=== PATIENT | female | born 1990 | race Caucasian/White ===

== ENCOUNTER 2018-05-20 12:45 | Observation (INO) | payer OTHER ==
[2018-05-20 14:10] LABS: ABS Basophils 0 10^3/ul (0-0.2); ABS Eosinophils 0 10^3/ul (0-0.6); ABS Monocytes 0.5 10^3/ul (0-0.8); ABS Neutrophils 5.9 10^3/ul (1.5-7.7); ABS Nucleated RBC 0 10^3/ul; Eosinophil % 0.3 %; Hematocrit 37 % (35-47); Hemoglobin 12.8 g/dl (12.0-16.0); Lymphocyte % 23.9 %; Mean Corpuscular HGB Conc 35 g/dl (31-36); Mean Corpuscular Hemoglobin 30 pg (27-31); Mean Corpuscular Volume 87 fL (80-97); Mean Platelet Volume 8.4 fL (7.4-10.4); Nucleated Red Blood Cells % 0.1; Platelet Count 250 10^3/ul (150-450); Red Blood Count 4.27 10^6/ul (4.00-5.40); Red Cell Distribution Width 12 % (10.5-15); White Blood Count 8.5 10^3/ul (3.5-10.8)
[2018-05-20 14:20] LABS: EGFR Non-African American 130.7 (>60)
[2018-05-20] MEDS ORDERED: Omeprazole CAP* 20 MG PO SCH (18:00)
--- NOTE | 2018-05-20 18:55 | CONS ---
CONSULTATION REPORT: DATE OF CONSULT: 05/20/18 PATIENT OF: Dr. Lane, Dr. Elisa Millan, Dr. Menchaca, and Dr. Hennessy. HISTORY OF PRESENT ILLNESS: This is a 27-year-old woman, who is 32 weeks . I received a call last evening from Dr. Menchaca, the vascular surgeon, about Miri developing a cold, possibly a weak foot. He did not think it was vascular, although he was obtaining a vascular ultrasound of that left leg and wanted to me to see promptly and I had discussed with him that I would be glad to, although I would be leaving town shortly after I saw her, but I would make sure she was promptly followed up. I saw Miri this morning and then after her arterial ultrasound of her leg, she told me this morning that she is now 32 weeks without any complications with this or prior pregnancies. She notes that 5 to 6 weeks ago while walking in a parking lot, she developed acute left foot pain, which occurred without any trauma or twisting, it was in the ankle region, the lowest part of the leg as well as the foot. It was a dull pain and it worsened over a few days' time, affected her walking and she saw her primary. She became unable to bear weight on that foot and within a few days went to the [facility] where she had plain x-rays, which were normal and ultrasound that ruled out a deep vein thrombosis. She was diagnosed with a sprained ankle, sent home on crutches, and her symptoms have persisted since that time. These include discoloration, mostly a purple hue in her entire foot and ankle area. She has had swelling, which has improved, but has persisted and coldness in that foot that occurs on a daily basis, but it is not there continuously. She has been unable to walk without crutches and she notes that she is weak in that foot, unable to plantar flex or dorsiflex her ankle. There is pain upon touch and movement, but she is not sure, she thinks that there may be weakness beyond that with the pain. She also has pins and needles in the entire foot including the top and bottom. She is unable to move the last 3 toes of that foot, but can move to a limited degree the first and second toe. She has no headache. No weakness in the arms or the right leg. She has had some mild nondescript low back pain in the past month, which is similar to what she has had with prior pregnancies and it does not radiate. PAST MEDICAL HISTORY: I have seen her for demyelinating disease. Of note, she has had a positive NMO titer. Of note, she had 1 prior miscarriage. CURRENT MEDICATIONS: Include: 1. . 2. Lansoprazole. ALLERGIES: She is allergic to VICODIN and PNEUMOCOCCAL VACCINE. PHYSICAL EXAM: Blood pressure 120/82, pulse 76. She was alert and oriented with normal speech and comprehension. Cranial nerves II through XII were intact. Fundi were benign. Motor exam revealed normal tone, strength other than the left foot. No pronator drift. Reflexes were 2 and equal throughout. She did have a positive ankle jerk on the left. It was difficult to fully assess this due to the pain in that foot. [id number] was intact. She walked using crutches, did not bear weight on the left foot. Left foot was purple to the ankle, very tender to touch. Vibration appeared intact to it. Sensation was intact to light touch and pin, but it was sensitive and she said there was a tingly feeling to it. Above the ankle, sensation was intact and there was no significant tenderness. It hurt her when her foot was passively moved. She could not plantar flex or dorsiflex at all. She said that she thought even with the pain, she should have been able to move it. She could not move the third, fourth, and fifth toes of that foot, but could move the first 2 toes. DIAGNOSTIC STUDIES: She had a vascular ultrasound today, which was normal arterial study. I spoke to Dr. De La Torre. IMPRESSION AND PLAN: I had Dr. Hennessy, who is the neurologist, who is on-call for the hospital beginning at 5, to see her with me, so that it will be continuity of care. I discussed the case with him and he actually looked at her with me in the morning. There are a few possibilities of what is causing the problem. Most significantly, if the weakness is real, it would be in more than one nerve distribution, it would be either multiple nerve roots or a pelvic problem and therefore, we will get an MRI scan of the pelvis and lumbar area without contrast given her . It is possible that there would be something pressing on causing this pattern, although it is an unusual pattern. With localized tenderness there, I wonder whether this could be a broken bone or other injury to the foot that was missed by plain x-ray and Dr. Lane, who I have spoken to, will be looking at this and decide what further orthopedic evaluation is needed. The third possibility would be reflex sympathetic dystrophy, which would fit, but the time course would be odd in that the swelling, coldness, and unusual pain is in very close proximity when the pain just started. Dr. Lane will be ordering the MRI scan and then will be following up with Dr. Hennessy. There was a possible pituitary microadenoma and we have sent records up to Dr. Veras and called his office to call us back if there was an issue, but we will double check with his office now. Thank you for sharing her case. [id number]/[facility] #: [id number] MEG
--- NOTE | 2018-05-20 18:58 | PN ---
Progress Note - Progress Note Date of Service: 05/20/18 Note: 27 yo at 33weeks who presents with a discolored and painful left foot . THis has been going on for weeks currently and pt has been in bed for the most part. Pt was seen by her neurologist today and sent in . Pt has had several mri studies showing relatively normal flow. Foot before was cold and darker . arterial flow studies are ok. Pt states good movement. past med hx MS found incidentally when evlauated for Migraines and has been relatively asymptomatic psurghx - x 3 in past current has been unremarkable. Pt passed her 1hr gct Discussed case with Dr Lane and Dr Cardona . I recommend venous duplex to r/o DVT .Lovenox ok as prophylaxis or rx . Ob available for consultation on meds and imaging . Currently no obstetric issues. Do not recommend any studies at this time. Elia Ford MD
[2018-05-20] MEDS: Acetaminophen TAB* 325 MG PO PRN (19:34)
--- NOTE | 2018-05-20 20:35 | HP ---
CC: Dr. Campbell; Dr. Ford; Dr. Menchaca; Dr. Bacon; Dr. Millan HISTORY AND PHYSICAL: DATE OF ADMISSION: 05/20/18 CHIEF COMPLAINT: Left foot pain. HISTORY OF PRESENT ILLNESS: This is a 27-year-old female with history of multiple sclerosis, who presents as a direct admission from the neurology office this morning. She was seen by Dr. Campbell for MS and has been following with Vascular Surgery for ongoing left foot pain, swelling, and coldness for the past 5 to 6 weeks. It began approximately 6 weeks ago when she was out running errands with her family and she noticed some dull left foot pain. She thought she may have stepped on it funny, but denied any trauma, falls, twisted ankle, or accidents to the foot. For several days, it was a dull pain that she did not pay much attention to, but over the next few days, the pain got much worse as did the swelling. By 5 days later, she could barely put weight on it. She went to her PCP at that time and was diagnosed with an ankle sprain. She used supportive care and the pain got much worse with heat. She went to the [place] ED and received an x-ray, which was negative and then the swelling got worse. She had a venous Doppler at [place] as well, which she reports was unremarkable. Yesterday, she saw Dr. Menchaca in the vascular surgery office where she was referred from her primary care physician. She saw Dr. Menchaca yesterday and she had dopplerable pulses in her feet and he sent her for an official arterial duplex this morning, which was unremarkable. Then, she went to see Dr. Campbell, who recommended a direct admission and an MRI of her pelvis and L-spine to rule out active multiple sclerosis lesions. Ms. Siegel expresses ongoing pain. She describes the pain as a squeezing pain on her entire foot and it is constant. Bearing weight is unbearable. She describes pins and needles sensation, which also gets worse when she walks. The purple color has been present for approximately 5 weeks and the coldness has been present for approximately 5 weeks. She has tried Tylenol with no relief. She has no other systemic symptoms. Of note, she is also 32 weeks . She has had an uncomplicated thus far. Her and 3 children are in the room. Her shares her concern and frustration of this ongoing pain without a diagnosis and fear of chronicity given the upcoming arrival of another baby. PAST MEDICAL HISTORY: 1. Multiple sclerosis, which has not been active and she follows with Dr. Campbell for. 2. Gastritis with history of an ulcer. 3. GERD. 4. History of gestational diabetes during her second . HOME MEDICATIONS: 1. Tylenol p.r.n. 2. A vitamin. 3. Lansoprazole 30 mg daily. ALLERGIES: IBUPROFEN, CODEINE, VICODIN. FAMILY HISTORY: Her dad has CLL. Her mother is from heart disease 4 years ago and she had fibromyalgia, rheumatoid arthritis, and end-stage renal disease. SOCIAL HISTORY: She does not smoke, drink, or use recreational drugs. She lives in [place] with her and 3 children. She does not work. She takes care of her family. REVIEW OF SYSTEMS: She denies fevers, chills, nausea, vomiting, shortness of breath, dysuria, CVA tenderness. She also notes some weakness in the left toes. PHYSICAL EXAMINATION GENERAL: This is an alert, young, well-appearing female. She is nontoxic. VITAL SIGNS: Pending. HEENT: Her pupils are equal, round, and have no nystagmus. Her oral mucosa is moist. NECK: Her neck has no JVD. No cervical adenopathy. LUNGS: Clear bilaterally. BACK: She has no CVA tenderness. CHEST: She is in a regular rate and rhythm with no murmurs. ABDOMEN: Gravid, soft, and nontender. EXTREMITIES: Her left foot is cold and discolored. Her DP and PT pulses are not palpable, but are dopplerable. Her foot is exquisitely tender to palpation. She is able to move the first and second digits, but unable to move the third, fourth, and fifth digits. She can flex and extend the ankle. The right foot is unremarkable. She has no lower extremity edema, but the left foot is edematous. DIAGNOSTIC STUDIES/LAB DATA: White blood cells 8.5, hemoglobin 12.8, platelets 250. Sodium 136, potassium 3.9, chloride 107, glucose 87. LFTs are within normal limits. Duplex lower extremity arteries done on 05/20/18 shows triphasic flow throughout with no evidence for stenosis. ASSESSMENT AND PLAN: This is a 27-year-old female, who is 32 weeks and has history of multiple sclerosis, who presents today as a direct admission from Neurology with a cold purple foot for 5 weeks and concern for reflex sympathetic dystrophy. 1. Reflex sympathetic dystrophy. This is a diagnosis of exclusion, so we must rule out all other vascular and neurologic possibilities. I have discussed the case with Dr. Campbell of Neurology and Dr. Menchaca of Vascular Surgery. Dr. Campbell recommends an MRI without contrast of her pelvis and lumbar spine and Dr. Menchaca recommends arterial PVRs and repeat duplexes of the venous system. I have discussed this with the ultrasound department. They are unable to do the duplex of the venous system today, but they will perform the PVRs today. I am also consulting Orthopedic Surgery to evaluate her foot and we will discuss the case with Dr. Bacon. Alternative diagnoses that shall remain on the differential include phlegmasia cerulea dolens and phlegmasia alba dolens. Other neuropathies are also a consideration. 2. 32 weeks . I am consulting Dr. Ford of Obstetrics to follow along with us and appreciate his input. 3. Multiple sclerosis. Again, she follows with Dr. Cambpell. It is possible that multiple sclerosis is playing a role in this, which is why an MRI of her pelvis and L-spine are prudent. [id number]/[facility] #: [id number] MEG
[2018-05-20 22:14] LABS: Urine Appearance Clear; Urine Blood Negative (Negative); Urine Color Yellow; Urine Ketones Negative (Negative); Urine Protein Negative (Negative); Urine Specific Gravity 1.019 (1.010-1.030); Urine Urobilinogen Negative (Negative)
[2018-05-21] MEDS: Acetaminophen TAB* 325 MG PO PRN (01:07)
--- NOTE | 2018-05-21 03:25 | CONS ---
NEUROLOGY CONSULTATION: DATE OF CONSULT: 05/20/18 LOCATION: She is an inpatient at [facility]. HOSPITALIST: Dr. Lane. CHIEF COMPLAINT: Numb, weak, painful foot. HISTORY OF PRESENT ILLNESS: Miri Siegel is a 27-year-old woman who was admitted today after seeing Dr. Marciano Campbell in our office in neurological consultation. She reports that about 5 to 6 weeks ago she noted some pain in her left foot. She felt perhaps she had sprained her ankle. Over the next several weeks, it became more and more painful and had swollen. She developed numbness and tingling in her foot. She developed weakness in her foot as well. She saw her extractor operator nurse practitioners and they did not find any abnormalities. She saw Dr. Joaquin Menchaca of Vascular Surgery and he found no evidence of vascular insufficiency or venous problems. Dr. Menchaca called Dr. Campbell who saw Miri this morning. He felt that she needs to be admitted for MR imaging of her spine and pelvis. She had a duplex scan to the lower extremities which were normal. She had an MRI of her pelvis which revealed some compression of the pelvic veins but nothing unusual for . She had an MRI of her brain which was normal. I reviewed the images and I agreed. Maybe a little bit of high T2 signal around the 4th ventricle but it is symmetrical and not clearly abnormal. She had an MRI of her lumbar spine which I reviewed and is also normal. She has a history of demyelinating disease going back at least a year or so. Apparently she had some white matter lesions of her brain on MR imaging and she had a positive neuromyelitis optica antibody study. She was seen by Dr. Kenyon Veras of the neuroimmunology clinic at the [facility]. It was felt she probably had multiple sclerosis. She was not put on preventative agents as she became . She had visually evoked potentials as a part of her evaluation in January 2017, interpreted as normal. Her MRI of the cervical spine was also interpreted as normal. PAST MEDICAL HISTORY: Otherwise pretty unremarkable. MEDICATIONS: Her only medications are vitamins and omeprazole. ALLERGIES: She is allergic to CODEINE, IBUPROFEN, and HYDROCODONE which cause hives. REVIEW OF SYSTEMS: Negative for headaches currently although she has had some migraines in the past. She has dyspepsia but not unusual lately. There is no clear history of trauma to the extremities. She has not noticed any change in the vision or double vision. There is no retroorbital pain. She has not had any coughs or fevers lately. There is no history of diabetes or hypertension. There is no history of cardiac or pulmonary disease. PHYSICAL EXAM: She is well nourished and . Temperature is 96.6, blood pressure 109/67, heart rate in the 70s and regular, respiratory rate is 18 and oxygen saturation is 98%. Limited neurological exam was carried out as Dr. Campbell examined her earlier today. Her both feet are little bit cool, but the left is a little cooler than the right. The left is a little bit swollen but not particularly erythematous. There is pain to palpation of the left foot, particularly the plantar aspect in the toes. She has very limited dorsiflexion and plantarflexion of the left foot. She cannot invert or catina very much either. It does cause pain but she says it is really more weakness than pain. Light touch sensation is diminished in the toes but intact above the ankles. There is no spasticity in the leg. She has normal proximal strength in the left leg. She has normal strength in the right leg proximally and distally. She has normal knee reflex and trace ankle reflex. Plantar response is flexor bilaterally. There is no facial weakness and speech is clear. There is no weakness or sensory loss in the upper extremities. IMPRESSION AND RECOMMENDATIONS: I am unclear of the etiology of her syndrome, but I am still suspicious she might be having a spinal attack of her demyelinating disease. I would like to get an MRI scan of the cervical and thoracic spine in addition to what has been done already. We will not use contrast. I would also like to get some blood work to include anticardiolipin antibodies and an PACO. Orthopedics has been consulted and an extractor operator. I discussed her case earlier today with Dr. Menchaca and also very briefly and then subsequently over the phone with Dr. Campbell. I will follow her along. [id number]/[facility] #: [id number] MEG
[2018-05-21] MEDS ORDERED: Prenatal Vitamin TAB PO SCH (09:00)
[2018-05-21] MEDS ORDERED: Enoxaparin(*) 40 MG/0.4 ML SYR SUBCUT SCH (09:00)
[2018-05-21 09:21] VITALS: BP 111/66
--- NOTE | 2018-05-21 11:00 | PN ---
Subjective Date of Service: 05/21/18 Interval History: Last night the foot became hot. The pain was unchanged, but this was unusual-- it has mostly been cold over the past 5 weeks. She continues to use crutches to ambulate. SHe is concerned about being able to walk when she has a in a few weeks. She wants to go home by [employer]. She shares the importance of to her and that any treatment plan must be congruent with as well. She has no other complaints outside of the foot. She feels the baby moving as often as usual. She also tells me she is always hot. Objective Active Medications: Acetaminophen (Tylenol Tab*) 650 mg PO Q6H PRN PRN Reason: PAIN Last Admin: 05/21/18 01:07 Dose: 650 mg Enoxaparin Sodium (Lovenox(*)) 40 mg SUBCUT Q24H [facility] Last Admin: 05/21/18 09:27 Dose: 40 mg Multivitamins ( Vitamin Tab*) 1 tab PO DAILY [facility] Last Admin: 05/21/18 09:24 Dose: 1 tab Omeprazole (Prilosec Cap*) 20 mg PO QPM [facility]; Protocol Last Admin: 05/20/18 17:50 Dose: 20 mg Vital Signs - 8 hr 05/21/18 07:47 Temperature 97.5 F Pulse Rate 77 Respiratory 16 Rate Blood Pressure 111/66 (mmHg) O2 Sat by Pulse 98 Oximetry Oxygen Devices in Use Now: None Appearance: alert, well appearing young woman Eyes: No Scleral Icterus Ears/Nose/Mouth/Throat: Mucous Membranes Moist Neck: NL Appearance and Movements; NL JVP Respiratory: Symmetrical Chest Expansion and Respiratory Effort, Clear to Auscultation Cardiovascular: RRR Abdominal: - - gravid Lymphatic: No Cervical Adenopathy Extremities: - - left calf atrophy. left foot is edematous but the same temperature as the right foot today. paresis of the 3rd, 4th, 5th digits. hypersensitive to light touch. Neurological: Alert and Oriented x 3 Result Diagrams: 05/20/18 13:54 05/20/18 13:54 Assess/Plan/Problems-Billing Assessment: This is a 27 year old, 33-week female with history of Multiple Scerosis who presented as a direct admission from the neurology office with a painful, cold foot with 3rd, 4th and 5th digit paresis who has thus far had an unremarkable radiographic work up. - Patient Problems (1) Reflex sympathetic dystrophy Current Visit: Yes Status: Acute Code(s): G90.50 - COMPLEX REGIONAL PAIN SYNDROME I, UNSPECIFIED SNOMED Code(s): 659264482 Comment: this is not a definitive diagnosis but remains on the differential ... Neurology maintains a broad differential including sciatic neuropathy, a schwannoma, etc that we would not have seen without contrasted studies. plan for nerve conduction studies today with Dr. Hennessy. I appreciate his input. RSD would be unusual in someone without trauma to the area, but according to Dr. Menchaca, is more common in people with MS awaiting a repeat venous doppler to rule out venous clot, however a cold purple foot would be an unusual presentation of a dvt appreciate neurology, vascular, orthopedic, and OB consultations will need a multidimensional approach if this is indeed the case including paint brush maker. Dr. Hirsch (pain) is not here this weekend, so will refer as outpatient. Medications like gabapentin, lyrica, TCAs, topical lidocaine, etc may be helpful , but will defer until a more definitive diagnosis is reached, and these can be verified for safety in and I will consult OT and PT, though she may need more pain relief before she can effectively participate with therapy (2) Multiple sclerosis Current Visit: Yes Status: Acute Code(s): G35 - MULTIPLE SCLEROSIS SNOMED Code(s): 85622938 Comment: has been quiescent there was concern that a spinal plaque could be causing her symptoms, but MRI l- spine was unremarkable, as was the MRI pelvis and brain Dr. Hennessy is following with Adrian as her primary neurologist (3) GERD (gastroesophageal reflux disease) Current Visit: Yes Status: Acute Code(s): K21.9 - GASTRO-ESOPHAGEAL REFLUX DISEASE WITHOUT ESOPHAGITIS SNOMED Code(s): 909173097 Comment: continue ppi (4) Current Visit: Yes Status: Acute Comment: Dr. Ford following; no OB concerns from his standpoint except ruling out a DVT
[2018-05-21] MEDS ORDERED: methylPREDNISolone SOD SUCC* 500 MG in NS 0.9% 100 ML* 100 ML IVPB ONE (13:27)
--- NOTE | 2018-05-21 20:56 | CONS ---
CC: PCP CONSULTATION REPORT: DATE OF CONSULTATION: 05/21/18. ATTENDING PHYSICIAN: Milena Bacon MD. CHIEF COMPLAINT: Left hip pain. HISTORY OF PRESENT ILLNESS: Briefly, Miri is a 27-year-old female with a significant medical history of multiple sclerosis, who is also 33 weeks with her fourth child, who presents with an ongoing left foot pain, swelling and discoloration for 5 to 6 weeks. She said it began when she was running errand in a parking lot and she noticed that she had some pain. She does recall specifically rolling it but she may have slept on her side. She does not feel like if she twisted, but she is not entirely sure. She did not pay attention to it, but pain increased much more. Few days later, she was unable to put weight on it. At that point, she was diagnosed with an ankle sprain. They did obtain x-rays, which were negative at [facility], I do not have access to. She kept presenting with pain and had ankle swelling. She also has had a more of a purplish discoloration of the foot and increased sensitivity to touch. She was then sent in by her primary care doctor. She was then sent to Dr. Menchaca, who is a vascular surgeon, who said that she had Dopplerable pulses and sent her for arterial duplex. Dr. Campbell then recommended a direct admission to get an MRI of her pelvis and I will plan to make sure that there was no MS plaques. The patient has been admitted. She continues to have pain and swelling of the foot. She is unable to weight bear comfortably. She did have MRIs last evening, and does not know the results. She has had an uncomplicated . PAST MEDICAL HISTORY: Significant for multiple sclerosis, gastritis, history of ulcer, GERD, gestational diabetes with her second . HOME MEDICATIONS: 1. Tylenol. 2. vitamins. 3. Lansoprazole. ALLERGIES: IBUPROFEN, CODEINE, VICODIN. FAMILY HISTORY: Father with CLL. Mother is from heart disease 4 years ago, has fibromyalgia, rheumatoid arthritis, and end-stage renal disease. SOCIAL HISTORY: She does not smoke, drink, or use recreational drugs. She lives with her and 3 other children. She does not works. She takes care of her family. She is right-hand dominant. REVIEW OF SYSTEMS: A 14-point review of systems reviewed with the patient, significant only for the above complaint including weakness of the ankle, inability to weight bear, swelling, hyperesthesia, burning, tingling type of pain. No fevers or chills. No other symptoms, otherwise. She is . Otherwise remainder of the systems is negative. PHYSICAL EXAM: On physical exam, she is in no acute distress. She is well developed, well nourished. She is alert and oriented x3. She has pleasant mood and normal affect. Good balance and coordination bilaterally of upper extremities. She cannot weight bear on her foot. Temperature of 97.5, pulse 77 , respiratory rate 16, O2 saturation 98, blood pressure 111/66. Examination of the left foot and ankle demonstrates, the skin is intact. She does have some mild mottled or discoloration to the dorsolateral aspect of the foot. She is able to dorsiflex and plantar flex, although she states it is difficult for her to do due to weakness. She is able to flex and extend her great toe and has difficulty to flex and extend the lesser toes. She is sensate to light touch about the first dorsal webspace, medial and plantar aspect of the foot. She has some dysesthesias and hyperesthesias about the dorsum in the lateral aspect of the foot. She is not tender specifically to the medial and lateral malleoli , but she is tender about the soft tissues laterally. She has discomfort with [id number] motion. Her calf is soft and nontender. She is sensate to light touch grossly. She has 2+ PT and DP pulse. DIAGNOSTIC STUDIES/LAB DATA: X-rays are not available, but she had other imaging study done nonspecific to the foot that are available for my review. Pelvis MRI was done on 05/20/18, that was read as that she is , gravid uterus, appropriate flow, but no evidence of occlusion based on the imaging. Labs: White count of 8.5, hematocrit of 37, platelet count of 250. Sodium 136 , potassium 3.9, chloride 107, carbon dioxide 22, BUN 8, creatinine 0.55. UA is negative. ASSESSMENT AND PLAN: I cannot get x-rays from [facility] and I cannot fully visualize, also I would not recommend getting x-ray as there is risk to the mother and the baby. I do think that she may have had a strain, she acts like she has complex regional pain syndrome, which is something that can happen after simple sprain or relatively minor injury and it can be very debilitating. At this point, I would recommend physical therapy. She is not able to take antiinflammatories. We talked about desensitization. I would have her see my pain colleagues as she may need to see them for a possible blocks versus other issues. From my point of view, I do not see anything orthopedic related. I did offer that the patient could get an MRI, but I do not known that even that is warranted. I will see the patient back on an as-needed basis. [id number]/[facility] #: [id number] MEG
--- NOTE | 2018-05-21 21:46 | CONS ---
CC: Dr. Ford; Dr. Menchaca.* NEUROLOGY FOLLOWUP NOTE: DATE OF FOLLOWUP: 05/21/18 LOCATION: She is an inpatient at [facility]. HOSPITALIST: Dr. Lane. CHIEF COMPLAINT: Leg pain, weakness, and numbness. INTERVAL HISTORY: Since yesterday, Miri has not noticed any changes in her symptoms. The one new symptom is that her left foot felt very hot last night. Her whole body felt very warm and she had a fan on most of the night. Today, the foot still feels somewhat warm, but not as hot as it did last night. She did not have a fever at all through the night. MEDICATIONS: Reviewed and she is on: 1. Multivitamins. 2. Lovenox 40 mg subcutaneous q.24 hours. 3. Omeprazole 20 mg. PHYSICAL EXAM: She has been afebrile, most recent temperature 97.5 orally, blood pressure 111/66, heart rate 77, respiratory rate is 16. Oxygen saturation 98%. Neurological exam shows normal strength and sensation in the upper extremities and the right lower extremity. There is no facial weakness. Her sensorium is clear. In the left lower extremity, there is diminished temperature sensation to the cold tuning fork on the left foot including the dorsum, the lateral aspect, and up the lateral foreleg to about the proximal third of the fibula. There is a normal temperature sensation on the medial aspect of the left leg and more proximally. There is diminished pin discrimination in the same distribution. There is absent light touch in the toes, but it is intact in the medial aspect of the foot. She has normal reflexes at the knees and both ankles. Plantar response in the right is flexor, in the left is mute. She has good proximal strength in the left leg. Hamstrings and quadriceps are intact. She has minimal toe dorsiflexion and ankle flexion in the left foot. She has a little bit greater, but still less than a full plantar flexion, toe flexion, strength in the left foot. She has no eversion and very little inversion strength. DIAGNOSTIC STUDIES/LAB DATA: Laboratory data is reviewed. She had an MRI of the cervical spine as well as the thoracic spine and without contrast and there are no lesions. MRIs of the brain and lumbar spine and pelvis were all interpreted as normal yesterday as well. She had duplex scan in the lower extremities yesterday, which was normal. Lab tests from yesterday notable for normal CBC, normal chemistry profile. TSH is normal at 0.43. Nerve conduction EMG testing was done in the left leg. There was lots of electrical interference that was not able to eliminate, so it is a limited study. Also, she had significant pain without any manipulation of the foot. There was no response to the anterior tibialis or extensor digitorum brevis. There was no sural response either. EMG testing revealed no recruitable motor units in the medial gastrocnemius. There were some few recruitable motor units in the left gastroc. They were mainly polyphasic mod units. There was no spontaneous activity, but there was increased insertional activity in the left gastrocnemius. There was increased insertional activity in the tibialis anterior, very few motor units, which were polyphasic. IMPRESSION: Impressions is that of a possible sciatic or mononeuropathy or lumbosacral plexopathy. Impression is that of a peripheral process. It does not appear to be a demyelinating event. 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 She may need imaging of her sciatic nerve in her leg to look for a neoplasm or other compressive lesion. PLAN/RECOMMENDATIONS: I spoke with Dr. Monterroso of Obstetrics regarding the safety of steroids. He feels that its use frequently in patients with asthma and we discussed the dosing. I discussed my impression with Dr. Lane. We will go ahead and give her 5 mg of Solu-Medrol infusion today. She could be discharged home and I could arrange for further infusions and a prednisone taper as an outpatient. I can also discuss her case with neuromuscular group up the [facility]. In the meanwhile, she does have few labs pending including an PACO, cryoglobulins, and antiphospholipid antibodies. I discussed the possibility of immune-mediated process with Miri. I explained that steroids may help decrease inflammation and at least resolve pain in hopefully over time improve motor function. I reviewed potential side effects of steroids with her including insomnia, anxiety, intestinal problems, and bed bug exterminator issues, which should not be a factor. I will plan on arranging followup for her in my office this coming week as well as possible additional doses of Solu-Medrol. [id number]/[facility] #: [id number] [facility]
== END 2018-05-21 17:15 | disposition home or self-care (01) ==
LOC: INTOOBSV 13:21 → MED 13:21
PROVIDERS: ADMIT Internal Medicine; ATTEND Internal Medicine
DX: M79.672 Pain in left foot (principal); G90.50 Complex regional pain syndrome I, unspecified; K21.9 Gastro-esophageal reflux disease without esophagitis; G35 Multiple sclerosis; K29.70 Gastritis, unspecified, without bleeding; Z34.90 Encounter for supervision of normal pregnancy, unspecified, unspecified trimester; R53.1 Weakness; R20.0 Anesthesia of skin; Z34.93 Encounter for supervision of normal pregnancy, unspecified, third trimester; Z3A.33 33 weeks gestation of pregnancy
CPT/HCPCS: 36415; 70551; 72141; 72146; 72148; 72195; 80053; 81003; 82595; 84443; 85025; 86038; 86147; 93922; 95885; 95907; 96372; 96374; A9270-GY; G0378; G8978-GP-CI; G8979-GP-CI; G8980-GP-CI; J1650; J2930